=== PATIENT | male | born 1985 | race Caucasian/White ===

== ENCOUNTER 2020-02-01 07:05 | Emergency (ER) | payer OTHER ==
[~2020-02-01] VITALS: Ht 170 cm; Wt 68.0 kg
[2020-02-01] MEDS ORDERED: ETOMIDATE IV SOLN 20 MG/10 ML VIAL IV ONE (07:08)
[2020-02-01] MEDS ORDERED: MIDAZOLAM 5 MG/5 ML (VERSED) VIAL IJ ONE (07:08)
[2020-02-01] MEDS ORDERED: ROCURONIUM 10 MG/ML 5 ML SYRINGE IV ONE (07:08)
[2020-02-01] MEDS ORDERED: KETAMINE/NaCl 50 MG/5 ML SYRINGE (ED ONLY) ONE (07:15)
[2020-02-01] MEDS ORDERED: morphine INJ 10 MG/ML 1ML (SYR OR VIAL) ONE (07:15)
--- NOTE | 2020-02-01 07:20 | NUR ---
Pt. received 25mg Ketamine and 6mg Morphine at 0721.
--- NOTE | 2020-02-01 07:25 | NUR ---
Pt. is receiving 20mg of Etomidate and 50mg Rocuronium for intubation.
[2020-02-01] MEDS ORDERED: WATER (STERILE) FOR INJECTION 10 ML ONE (07:26)
[2020-02-01] MEDS ORDERED: ceFAZolin INJECTION 1,000 MG ONE (07:26)
[2020-02-01 07:27] LABS: HEMOGLOBIN 14.8 g/dL (13.3-17.7); MEAN PLATELET VOLUME 9.1 fL (9.0-12.2)
--- NOTE | 2020-02-01 07:29 | NUR ---
Additional 20mg Etomidate.
[2020-02-01 07:30] LABS: ALBUMIN 4.2 GM/DL (3.2-4.5); CHLORIDE 108 MMOL/L (98-107); POTASSIUM 3.5 MMOL/L (3.6-5.0); SODIUM 141 MMOL/L (135-145)
[2020-02-01 07:32] LABS: CALCIUM 8.7 MG/DL (8.5-10.1)
[2020-02-01 07:33] LABS: GLUCOSE 166 MG/DL (70-105)
--- NOTE | 2020-02-01 07:33 | NUR ---
8.0 ETT, 20cm at the teeth, ETCO2- 31mmHg.
[2020-02-01 07:34] LABS: CARBON DIOXIDE 17 MMOL/L (21-32)
[2020-02-01 07:35] LABS: BILIRUBIN,TOTAL 0.4 MG/DL (0.1-1.0)
[2020-02-01 07:36] LABS: ALKALINE PHOSPHATASE 51 U/L (40-136)
[2020-02-01 07:37] LABS: CREATININE SERUM 1.03 MG/DL (0.60-1.30); GFR ESTIMATED > 60
[2020-02-01 07:38] LABS: BILIRUBIN,DIRECT 0.2 MG/DL (0.0-0.3); BILIRUBIN,INDIRECT 0.2 MG/DL; BUN/CREATININE RATIO 13
--- NOTE | 2020-02-01 07:39 | NUR ---
18Fr. OG placed.
[2020-02-01 07:40] LABS: ALANINE AMINOTRANSFERASE 19 U/L (0-55)
[2020-02-01 07:41] VITALS: BP 127/84
[2020-02-01] MEDS ORDERED: PROPOFOL DRIP (ICU) 100 ML IV ONE ×2 (07:43→15:30)
[2020-02-01] MEDS ORDERED: TETANUS,DIPTH,PERTUSS P/F (BOOSTRIX) 0.5 ML VIAL IM ONE ×2 (07:43→07:45)
[2020-02-01] MEDS ORDERED: ceFAZolin INJECTION 1,000 MG in WATER (STERILE) FOR INJECTION 10 ML IV ONE (07:45)
[2020-02-01] MEDS ORDERED: NS IV 1000 ML 1,000 ML IV SCH (07:45)
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
[2020-02-01 08:07] LABS: BILIRUBIN,URINE NEGATIVE (NEGATIVE); CLARITY,URINE CLEAR; COLOR,URINE YELLOW; GLUCOSE, URINE (UA) NEGATIVE (NEGATIVE); KETONES,URINE NEGATIVE (NEGATIVE); LEUKOCYTE ESTERASE ,URINE NEGATIVE (NEGATIVE); NITRITE,URINE NEGATIVE (NEGATIVE); PH,URINE 5.5 (5-9); PROTEIN,URINE 1+ (NEGATIVE)
[2020-02-01 08:20] LABS: BACTERIA,URINE NEGATIVE /HPF; WBC,URINE 0-2 /HPF
[2020-02-01 08:25] VITALS: BP 132/87
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
== END 2020-02-01 08:25 | disposition short-term general hospital (02) ==
LOC: ER 07:07
DX: T24.201A Burn of second degree of unspecified site of right lower limb, except ankle and foot, initial encounter (principal); T20.22XA Burn of second degree of lip(s), initial encounter; T20.24XA Burn of second degree of nose (septum), initial encounter; T20.21 Burn of second degree of ear [any part, except ear drum]; T23.242A Burn of second degree of multiple left fingers (nail), including thumb, initial encounter; T23.241A Burn of second degree of multiple right fingers (nail), including thumb, initial encounter; T21.14XA Burn of first degree of lower back, initial encounter; T20.17XA Burn of first degree of neck, initial encounter; T27.3XXA Burn of respiratory tract, part unspecified, initial encounter; F41.9 Anxiety disorder, unspecified; R40.2410 Glasgow coma scale score 13-15, unspecified time; Z23 Encounter for immunization; W36.8XXA Explosion and rupture of other gas cylinder, initial encounter
CPT/HCPCS: 31500; 51702; 71045; 80048; 80076; 81000; 85027; 86850; 86900; 86901; 87070; 87205; 90471; 94799; 96374; 96375; 99291; 99292; G0390; G0480; 36415; 80320; 90715